=== PATIENT | female | born 1965 | race Two or more races ===

== ENCOUNTER 2017-10-30 13:47 | Emergency (ER) | payer OTHER ==
[~2017-10-30] VITALS: Ht 149.9 cm; Wt 60.8 kg
[~2017-10-30 13:47] MED LIST: ADVIL100 MG PO; ATENOLOL50 MG PO; BACTROBAN OINT22 GM TP; DIPROSONE CR.45 GM TP; GLIPIZIDE10 MG PO; METFORMIN HCL500 M1 PO; METFORMIN HYDRO25 GM
[2017-10-30] MEDS ORDERED: TUSSI-PRES LIQ118 ML PO (23:18)
== END 2017-10-31 01:21 | disposition home or self-care (01) ==
LOC: ER 13:47
DX: B34.9 Viral infection, unspecified (principal); J11.1 Influenza due to unidentified influenza virus with other respiratory manifestations

== ENCOUNTER 2018-03-31 23:08 | Emergency (ER) | payer OTHER ==
[~2018-03-31] VITALS: Ht 149.9 cm; Wt 59.0 kg
[~2018-03-31 23:08] MED LIST changes: +TUSSI-PRES LIQ118 ML PO
[2018-04-01] MEDS ORDERED: PEPCID AC20 MG PO (05:56)
[2018-04-01] MEDS ORDERED: PROMETHAZINE HC25 MG PO (05:56)
== END 2018-04-01 08:02 | disposition home or self-care (01) ==
LOC: ER 23:08
DX: K29.60 Other gastritis without bleeding (principal); E11.65 Type 2 diabetes mellitus with hyperglycemia

== ENCOUNTER → 2019-05-20 | Emergency (ER) | payer OTHER ==
[~2019-05-20] VITALS: Ht 147.3 cm; Wt 59.0 kg
[~2019-05-20] MED LIST changes: +FORTAMET1000 MG PO; +PEPCID AC20 MG PO; +PROMETHAZINE HC25 MG PO
== END | disposition home or self-care (01) ==
LOC: ER 18:31
DX: E11.65 Type 2 diabetes mellitus with hyperglycemia (principal); R10.13 Epigastric pain

== ENCOUNTER 2023-12-25 17:48 | Emergency (ER) | payer OTHER ==
[~2023-12-25] VITALS: Ht 149.9 cm; Wt 52.2 kg
[2023-12-25] MEDS ORDERED: CARVEDILOL12.5 MG (18:31)
[2023-12-25] MEDS ORDERED: JANUMET 50-1,01 EACH (18:31)
== END 2023-12-25 19:08 | disposition home or self-care (01) ==
LOC: ER 17:49
DX: H11.32 Conjunctival hemorrhage, left eye (principal); Z88.8 Allergy status to other drugs, medicaments and biological substances; H57.89 Other specified disorders of eye and adnexa

== ENCOUNTER 2024-10-11 01:55 | Emergency (ER) | payer OTHER ==
[~2024-10-11] VITALS: Ht 147.3 cm; Wt 59.0 kg
[~2024-10-11 01:55] MED LIST changes: +CARVEDILOL12.5 MG; +JANUMET 50-1,01 EACH
[2024-10-11] MEDS ORDERED: IRBESARTAN150 MG PO (02:10)
[2024-10-11] MEDS ORDERED: ATENOLOL25 MG PO (02:10)
[2024-10-11] MEDS ORDERED: HYDROCODONE/CHLORPHEN P-STIREX 5 ML ML PO STA (03:30)
[2024-10-11 04:06] LABS: HEMATOCRIT 31.8 % (36.0-45.00); MEAN CELL VOLUME 89.4 fL (80.00-100.00); MEAN CORPUSCULAR HGB CONC 33.7 g/dl (32.0-36.0); PLATELET COUNT 264 K/uL (150-450); RED BLOOD COUNT 3.56 M/uL (4.00-6.00); RED CELL DISTRIBUTION WIDTH 13.7 % (11.5-14.5)
[2024-10-11 04:15] LABS: HEMOGLOBIN 10.7 g/dL (12.0-15.00)
[2024-10-11 04:22] LABS: CALCIUM 8.4 mg/dL (8.5-10.1); CREATININE SERUM 0.66 mg/dL (0.55-1.02); GFR 90.75; INFLUENZA A AG NEGATIVE (NEGATIVE); POTASSIUM 4.51 mEq/L (3.5-5.1)
[2024-10-11 04:40] LABS: COVID-19 AG NEGATIVE (NEGATIVE)
[2024-10-11] MEDS ORDERED: INSULIN REGULAR, HUMAN 1,000 UNIT/10 ML UNITS SUBCUTANEO STA (04:53)
== END 2024-10-11 05:56 | disposition home or self-care (01) ==
LOC: ER 01:55
DX: J10.1 Influenza due to other identified influenza virus with other respiratory manifestations (principal); R51.9 Headache, unspecified; Z20.822 Contact with and (suspected) exposure to COVID-19; Z88.8 Allergy status to other drugs, medicaments and biological substances

== ENCOUNTER → 2024-11-18 | Emergency (ER) | payer OTHER ==
[~2024-11-18] VITALS: Ht 149.9 cm; Wt 60.3 kg
[~2024-11-18] MED LIST changes: +ACETAMINOPHEN 500 MG GEL..CAP PO PRN; +ATENOLOL25 MG PO; +CEFTRIAXONE SODIUM 2,000 MG in 0.9 % SODIUM CHLORIDE 100 ML IV SCH; +DEXTROSE 50 % IN WATER 0.5 G/ML DISP.SYRIN IV PRN; +ENOXAPARIN SODIUM 40 MG/0.4 ML SYRINGE SUBCUTANEO SCH; +FUROsemide 20 MG/2 ML VIAL IV SCH; +INSULIN LISPRO 1,000 UNIT/10 ML UNITS SUBCUTANEO PRN; +INSULIN REGULAR, HUMAN 1,000 UNIT/10 ML UNITS IV ONE; +IPRATROPIUM BROMIDE 0.5 MG/2.5 ML AMPUL.NEB IH SCH; +IRBESARTAN 75 MG TABLET PO SCH; +IRBESARTAN150 MG PO; +METOPROLOL SUCCINATE 25 MG TAB.SR.24H PO SCH; +METRONIDAZOLE/SODIUM CHLORIDE 100 ML IV SCH; +POTASSIUM BICARBONATE/CIT AC 25 MEQ TABLET.EFF PO ONE
[2024-11-18 20:38] LABS: BASO % 0.3 % (0.1-1.2); EOS # 0.09 (0.04-0.54); EOS % 1.2 % (0.7-7.0); HEMATOCRIT 37.1 % (34.1-44.9); HEMOGLOBIN 11.7 g/dL (11.2-15.7); LYMPH # 1.95 (1.18-3.74); LYMPH % 25.2 % (19.3-53.1); MEAN CORPUSCULAR HEMOGLOBIN 28.2 pg (25.6-32.2); MONO # 0.68 (0.24-0.82); MONO % 8.8 % (4.7-12.5); NEUT # 4.99 (1.56-6.13); NEUT % 64.2 % (34.0-71.1); PLATELET COUNT 273 K/uL (163-369); RED BLOOD COUNT 4.15 M/uL (3.93-5.22); RED CELL DISTRIBUTION WIDTH 13.4 % (11.6-14.4)
[2024-11-18 21:01] LABS: INR 1.2; PARTIAL THROMBOPLASTIN TIME 22.3 SECONDS (22.0-34.0); PROTHROMBIN TIME 12.9 SECONDS (9.0-11.5)
[2024-11-18 21:06] LABS: ALBUMIN 3.4 gm/dL (3.4-5.0); BILIRUBIN TOTAL 1.16 mg/dL (0.3-1.2); BILIRUBIN,CONJUGATED 0.34 mg/dL (0.0-0.2); BILIRUBIN,UNCONJUGATED 0.82 mg/dL (0.0-0.6); CALCIUM 8.8 mg/dL (8.5-10.1); CREATININE SERUM 0.77 mg/dL (0.55-1.02); GFR 75.96; GLOBULINA 3.1 G/DL (2.4-3.5); POTASSIUM 3.34 mEq/L (3.5-5.1); TOTAL PROTEIN 6.5 gm/dL (6.4-8.2)
[2024-11-18 21:35] LABS: URINE APPEARANCE Cloudy; URINE BILIRRUBIN Negative (NEGATIVE); URINE BLOOD Trace; URINE COLOR Yellow; URINE KETONE Trace (NEGATIVE); URINE LEUKOCYTE Moderate; URINE NITRATE Negative
[2024-11-18 21:47] LABS: URINE CAST 2.19 uL (0.0-1.40); URINE EPITHELIAL CELLS 8.8 uL (0.0-38.8); URINE RBC 9.9 uL (0.0-20.8); URINE WBC 1947.2 uL (0.0-23.2)
[2024-11-18 22:22] LABS: URINE BACTERIA > 9821.5 uL (0.0-1933); URINE GLUCOSE >=1000 MG/DL (NEGATIVE); URINE PROTEIN 100 (NEGATIVE)
== END | disposition left against medical advice (07) ==
LOC: ER 16:17
PROVIDERS: Preventive Medicine Public Health & General Preventive Medicine
DX: N39.0 Urinary tract infection, site not specified (principal); R60.0 Localized edema; I50.9 Heart failure, unspecified; E11.9 Type 2 diabetes mellitus without complications; Z79.84 Long term (current) use of oral hypoglycemic drugs; I10 Essential (primary) hypertension; Z88.8 Allergy status to other drugs, medicaments and biological substances

== ENCOUNTER 2024-12-27 08:57 | Emergency (ER) | payer OTHER ==
[~2024-12-27] VITALS: Ht 147.3 cm; Wt 61.2 kg
[~2024-12-27 08:57] MED LIST changes: -ACETAMINOPHEN 500 MG GEL..CAP PO PRN; -CEFTRIAXONE SODIUM 2,000 MG in 0.9 % SODIUM CHLORIDE 100 ML IV SCH; -DEXTROSE 50 % IN WATER 0.5 G/ML DISP.SYRIN IV PRN; -ENOXAPARIN SODIUM 40 MG/0.4 ML SYRINGE SUBCUTANEO SCH; -FUROsemide 20 MG/2 ML VIAL IV SCH; -INSULIN LISPRO 1,000 UNIT/10 ML UNITS SUBCUTANEO PRN; -INSULIN REGULAR, HUMAN 1,000 UNIT/10 ML UNITS IV ONE; -IPRATROPIUM BROMIDE 0.5 MG/2.5 ML AMPUL.NEB IH SCH; -IRBESARTAN 75 MG TABLET PO SCH; -METOPROLOL SUCCINATE 25 MG TAB.SR.24H PO SCH; -METRONIDAZOLE/SODIUM CHLORIDE 100 ML IV SCH; -POTASSIUM BICARBONATE/CIT AC 25 MEQ TABLET.EFF PO ONE
[2024-12-27 10:19] LABS: BASO % 0.3 % (0.1-1.2); EOS # 0.12 (0.04-0.54); EOS % 1.1 % (0.7-7.0); LYMPH # 2.54 (1.18-3.74); LYMPH % 24.1 % (19.3-53.1); MEAN PLATELET VOLUME 9.90 fl (9.4-12.4); MONO # 0.94 (0.24-0.82); MONO % 8.9 % (4.7-12.5); NEUT # 6.89 (1.56-6.13); NEUT % 65.2 % (34.0-71.1); RED CELL DISTRIBUTION WIDTH 13.8 % (11.6-14.4)
[2024-12-27 10:43] LABS: INR 1.39
[2024-12-27 10:46] LABS: ALT/SGPT 36.0 U/L (12-78); AST/SGOT 28.0 U/L (15-37); BILIRUBIN TOTAL 0.75 mg/dL (0.3-1.2); BILIRUBIN,CONJUGATED 0.3 mg/dL (0.0-0.2); BUN CREA RATIO 25.0 (7.0-25.0); CREATININE SERUM 0.72 mg/dL (0.55-1.02); GFR 82.08; GLOBULINA 2.9 G/DL (2.4-3.5)
[2024-12-27 10:55] LABS: URINE APPEARANCE Clear; URINE BILIRRUBIN Negative (NEGATIVE); URINE BLOOD Trace; URINE COLOR Yellow; URINE KETONE Negative (NEGATIVE); URINE LEUKOCYTE Moderate; URINE NITRATE Negative; URINE UROBILINOGEN 0.2 E.U./dl
[2024-12-27 10:58] LABS: URINE BACTERIA 212.3 uL (0.0-1933); URINE EPITHELIAL CELLS 28.7 uL (0.0-38.8); URINE RBC 18.0 uL (0.0-20.8); URINE WBC 241.9 uL (0.0-23.2)
[2024-12-27 11:09] LABS: GLUCOSE FASTING 267.0 mg/dL (65-100); OSMOLALITY SERUM 283.0 MOSM/KG (275-295)
[2024-12-27 11:12] LABS: URINE CAST 0.29 uL (0.0-1.40); URINE GLUCOSE >=1000 MG/DL (NEGATIVE); URINE PROTEIN 100 (NEGATIVE)
[2024-12-27] MEDS ORDERED: INSULIN REGULAR, HUMAN 1,000 UNIT/10 ML UNITS SUBCUTANEO ONE (14:30)
== END 2024-12-27 17:53 | disposition home or self-care (01) ==
LOC: ER 08:57
PROVIDERS: Emergency Medicine
DX: L03.116 Cellulitis of left lower limb (principal); L03.115 Cellulitis of right lower limb; R21 Rash and other nonspecific skin eruption; E11.9 Type 2 diabetes mellitus without complications; Z79.84 Long term (current) use of oral hypoglycemic drugs; Z88.8 Allergy status to other drugs, medicaments and biological substances

== ENCOUNTER 2025-01-10 16:10 | Inpatient (IN) | payer OTHER ==
[~2025-01-10] VITALS: Ht 121.9 cm; Wt 53.5 kg
[~2025-01-10 16:10] MED LIST changes: +ACETAMINOPHEN500 M1 PO; +GILTUSS COUGH-118 M1 PO; +JANUMET 50-1,01 EACH PO; +OSEL75CA PO; +TENORMIN25 MG PO
--- NOTE | 2025-01-10 16:23 | NUR ---
PACIENTE ALERTA Y ORIENTADA X 3. REFIERE ULCERAS EN AMBAS PIERNAS, SE OBSERVAN CON EDEMA, ERITEMA Y CALIENTES AL TACTO.
[2025-01-10] MEDS ORDERED: PIPERACILLIN/TAZOBACTAM SODIUM 3.375 GM VIAL IV ONE ×2 (17:00→17:05)
--- NOTE | 2025-01-10 17:36 | NUR ---
MRS. BRADFORDTIZ EDUCA A PTE SOBRE [place] MEDICO, SE THUAN MUESTRAS DE LABORATORIO UTILIZANDO MEDIDAS ASEPTICAS. SE COLOCA H/L EDDIE DE EDEMA. SE ADMINISTRAN MEDICAMENTOS ELLIE ORDEN MEDICA. SE NOTIFICAN RX PENDIENTES A REALIZAR.
[2025-01-10 17:47] LABS: BASO % 0.5 % (0.1-1.2); EOS # 0.09 (0.04-0.54); EOS % 1.2 % (0.7-7.0); LYMPH # 1.80 (1.18-3.74); LYMPH % 23.7 % (19.3-53.1); MEAN PLATELET VOLUME 9.80 fl (9.4-12.4); MONO # 0.62 (0.24-0.82); MONO % 8.2 % (4.7-12.5); NEUT # 5.02 (1.56-6.13); NEUT % 66.0 % (34.0-71.1); RED CELL DISTRIBUTION WIDTH 14.5 % (11.6-14.4)
[2025-01-10 18:03] LABS: URINE APPEARANCE Clear; URINE BILIRRUBIN Negative (NEGATIVE); URINE BLOOD Small; URINE COLOR Yellow; URINE KETONE Negative (NEGATIVE); URINE LEUKOCYTE Negative; URINE NITRATE Negative; URINE UROBILINOGEN 1.0 E.U./dl
[2025-01-10 18:07] LABS: URINE BACTERIA 32.3 uL (0.0-1933); URINE CAST 2.05 uL (0.0-1.40); URINE EPITHELIAL CELLS 15.3 uL (0.0-38.8); URINE RBC 4.1 uL (0.0-20.8); URINE WBC 23.0 uL (0.0-23.2)
[2025-01-10 18:08] LABS: INR 1.31
[2025-01-10 18:18] LABS: ALT/SGPT 42.0 U/L (12-78); AST/SGOT 25.0 U/L (15-37); BILIRUBIN TOTAL 1.5 mg/dL (0.3-1.2); BUN CREA RATIO 18.0 (7.0-25.0); CREATININE SERUM 0.96 mg/dL (0.55-1.02); GFR 58.89; GLOBULINA 3.4 G/DL (2.4-3.5)
[2025-01-10 18:21] LABS: URINE GLUCOSE >=1000 MG/DL (NEGATIVE); URINE PROTEIN 100 (NEGATIVE)
[2025-01-10 18:51] LABS: OSMOLALITY SERUM 297.0 MOSM/KG (275-295)
[2025-01-10 18:52] LABS: GLUCOSE FASTING 322.0 mg/dL (65-100)
[2025-01-10] MEDS ORDERED: DEXTROSE 50 % IN WATER 0.5 G/ML VIAL IV PRN (20:15)
[2025-01-10] MEDS ORDERED: POTASSIUM CHLORIDE 20MEQ/100ML H2O PB IV ONE (20:15)
[2025-01-10] MEDS ORDERED: INSULIN LISPRO 1,000 UNIT/10 ML UNITS SUBCUTANEO PRN (20:15)
[2025-01-10] MEDS ORDERED: ACETAMINOPHEN 325 MG TABLET PO PRN (20:15)
[2025-01-10] MEDS ORDERED: 0.9 % SODIUM CHLORIDE 1,000 ML IV SCH (20:15)
[2025-01-10] MEDS ORDERED: ENOXAPARIN SODIUM 40 MG/0.4 ML SYRINGE SUBCUTANEO SCH (20:15)
[2025-01-10] MEDS ORDERED: MEROPENEM 1,000 MG in 0.9 % SODIUM CHLORIDE 100 ML IV SCH (20:16)
[2025-01-10] MEDS ORDERED: ATENOLOL 25 MG TABLET PO SCH (20:17)
[2025-01-10] MEDS ORDERED: MORPHINE SULFATE 2 MG/ML CARTRIDGE IV PRN (20:30)
[2025-01-11] MEDS ORDERED: ENOXAPARIN SODIUM 40 MG/0.4 ML SYRINGE SUBCUTANEO ONE (00:11)
[2025-01-11] MEDS ORDERED: POTASSIUM CHLORIDE 20MEQ/100ML H2O PB IV ONE (00:11)
[2025-01-11 02:03] VITALS: BP 124/73; O2SAT 98
[2025-01-11] MEDS ORDERED: INSULIN LISPRO 1,000 UNIT/10 ML UNITS SUBCUTANEO ONE (02:34)
[2025-01-11 07:39] LABS: ALT/SGPT 37.0 U/L (12-78); AST/SGOT 25.0 U/L (15-37); BILIRUBIN TOTAL 1.1 mg/dL (0.3-1.2); BUN CREA RATIO 16.0 (7.0-25.0); CREATININE SERUM 0.74 mg/dL (0.55-1.02); GFR 79.52; GLOBULINA 3.2 G/DL (2.4-3.5); GLUCOSE FASTING 121.0 mg/dL (65-100); OSMOLALITY SERUM 288.0 MOSM/KG (275-295)
[2025-01-11 07:40] VITALS: BP 115/80; O2SAT 100
[2025-01-11] MEDS ORDERED: POTASSIUM CHLORIDE 20MEQ/100ML H2O PB IV NR (11:30)
[2025-01-11] MEDS ORDERED: POTASSIUM BICARBONATE/CIT AC 25 MEQ TABLET.EFF PO SCH (17:00)
[2025-01-11 17:06] VITALS: BP 96/66; O2SAT 100
[2025-01-12 02:16] VITALS: BP 114/69
[2025-01-12 04:56] LABS: BASO % 0.2 % (0.1-1.2); EOS # 0.09 (0.04-0.54); EOS % 1.1 % (0.7-7.0); LYMPH # 2.47 (1.18-3.74); LYMPH % 30.0 % (19.3-53.1); MEAN PLATELET VOLUME 10.20 fl (9.4-12.4); MONO # 0.75 (0.24-0.82); MONO % 9.1 % (4.7-12.5); NEUT # 4.88 (1.56-6.13); NEUT % 59.4 % (34.0-71.1); RED CELL DISTRIBUTION WIDTH 14.6 % (11.6-14.4)
[2025-01-12 05:25] LABS: ALT/SGPT 32.0 U/L (12-78); AST/SGOT 17.0 U/L (15-37); BILIRUBIN TOTAL 1.03 mg/dL (0.3-1.2); BUN CREA RATIO 16.0 (7.0-25.0); CREATININE SERUM 0.86 mg/dL (0.55-1.02); GFR 66.86; GLOBULINA 2.7 G/DL (2.4-3.5)
[2025-01-12 05:33] LABS: OSMOLALITY SERUM 292.0 MOSM/KG (275-295)
[2025-01-12 05:38] LABS: GLUCOSE FASTING 247.0 mg/dL (65-100)
[2025-01-12] MEDS ORDERED: POTASSIUM PHOS,M-BASIC-D-BASIC 15 MM in 0.9 % SODIUM CHLORIDE 250 ML IV NR (09:00)
[2025-01-12 09:16] VITALS: BP 124/72; O2SAT 93
[2025-01-12] MEDS ORDERED: SODIUM CL 0.9% 250 ML IV.SOLN ONE (13:29)
[2025-01-12] MEDS ORDERED: MAGNESIUM SULFATE IN WATER 4 GM/100 ML PIGGYBACK IV NR (13:51)
[2025-01-12 18:45] VITALS: BP 121/60; O2SAT 100
[2025-01-13 02:40] VITALS: BP 118/86; O2SAT 100
[2025-01-13 06:47] LABS: BASO % 0.2 % (0.1-1.2); EOS # 0.08 (0.04-0.54); EOS % 0.9 % (0.7-7.0); LYMPH # 2.17 (1.18-3.74); LYMPH % 23.6 % (19.3-53.1); MEAN PLATELET VOLUME 10.40 fl (9.4-12.4); MONO # 0.69 (0.24-0.82); MONO % 7.5 % (4.7-12.5); NEUT # 6.18 (1.56-6.13); NEUT % 67.4 % (34.0-71.1); RED CELL DISTRIBUTION WIDTH 14.6 % (11.6-14.4)
[2025-01-13 07:22] LABS: ALT/SGPT 32.0 U/L (12-78); AST/SGOT 21.0 U/L (15-37); BILIRUBIN TOTAL 1.03 mg/dL (0.3-1.2); BUN CREA RATIO 14.0 (7.0-25.0); CREATININE SERUM 0.97 mg/dL (0.55-1.02); GFR 58.19; GLOBULINA 3.0 G/DL (2.4-3.5); GLUCOSE FASTING 104.0 mg/dL (65-100); OSMOLALITY SERUM 288.0 MOSM/KG (275-295)
[2025-01-13 08:57] VITALS: BP 111/66; O2SAT 97
[2025-01-13 09:02] VITALS: BP 126/70; O2SAT 93
[2025-01-13] MEDS ORDERED: NAPH,MB-DB/K PH,MBDB 1 PKT PACKET PO NR (12:00)
[2025-01-13] MEDS ORDERED: NAPH,MB-DB/K PH,MBDB 1 PKT PACKET PO SCH (17:00)
[2025-01-13] MEDS ORDERED: MEROPENEM 500 MG in 0.9 % SODIUM CHLORIDE 50 ML IV SCH (17:00)
[2025-01-13 19:38] VITALS: BP 126/80
[2025-01-14 02:02] VITALS: BP 92/69; O2SAT 100
[2025-01-14] MEDS ORDERED: INSULIN GLARGINE,HUM.REC.ANLOG 1,000 UNITS/10 ML UNITS SUBCUTANEO SCH (09:00)
[2025-01-14 09:18] VITALS: BP 100/66; O2SAT 97
[2025-01-14] MEDS ORDERED: NAPH,MB-DB/K PH,MBDB 1 PKT PACKET PO SCH (13:00)
[2025-01-14 17:20] VITALS: BP 133/84; O2SAT 97
[2025-01-15 02:04] VITALS: BP 146/85; O2SAT 98
[2025-01-15 06:25] LABS: BASO % 0.4 % (0.1-1.2); EOS # 0.16 (0.04-0.54); EOS % 1.8 % (0.7-7.0); LYMPH # 2.30 (1.18-3.74); LYMPH % 25.4 % (19.3-53.1); MEAN PLATELET VOLUME 10.30 fl (9.4-12.4); MONO # 0.79 (0.24-0.82); MONO % 8.7 % (4.7-12.5); NEUT # 5.72 (1.56-6.13); NEUT % 63.1 % (34.0-71.1); RED CELL DISTRIBUTION WIDTH 14.8 % (11.6-14.4)
[2025-01-15 06:38] LABS: ALT/SGPT 28.0 U/L (12-78); AST/SGOT 23.0 U/L (15-37); BILIRUBIN TOTAL 0.82 mg/dL (0.3-1.2); BUN CREA RATIO 26.0 (7.0-25.0); CREATININE SERUM 0.62 mg/dL (0.55-1.02); GFR 97.53; GLOBULINA 2.8 G/DL (2.4-3.5); GLUCOSE FASTING 104.0 mg/dL (65-100); OSMOLALITY SERUM 285.0 MOSM/KG (275-295)
[2025-01-15 08:33] VITALS: BP 135/64; O2SAT 98
[2025-01-15] MEDS ORDERED: MAGNESIUM SULFATE IN WATER 4 GM/100 ML PIGGYBACK IV NR (13:30)
[2025-01-15 17:00] VITALS: BP 142/69; O2SAT 99
[2025-01-15] MEDS ORDERED: EMOLLIENTS 6 OZ BOTTLE TOP SCH (17:55)
[2025-01-16 02:13] VITALS: BP 118/78
[2025-01-16 09:41] VITALS: BP 125/71; O2SAT 92
[2025-01-16] MEDS ORDERED: LEVOFLOXACIN750 MG PO (13:35)
[2025-01-16] MEDS ORDERED: JANUMET 50-1,01 EACH PO (13:36)
[2025-01-16] MEDS ORDERED: ATENOLOL25 MG PO (13:36)
[2025-01-16] MEDS ORDERED: IRBESARTAN75 MG PO (13:36)
[2025-01-16] MEDS ORDERED: INTESTINEX680 M1 PO (13:36)
== END 2025-01-16 18:15 | disposition home or self-care (01) | DRG 623 ==
LOC: ER 16:10 → MEDJ 20:46 → SEC-K 20:46 → MEDJ 01-11 11:44
PROVIDERS: General Practice; ADMIT Internal Medicine; ATTEND Internal Medicine
PROC: B54DZZZ Ultrasonography of Bilateral Lower Extremity Veins (ICD-10-PCS; 2025-01-12)
PROC: B44HZZZ Ultrasonography of Bilateral Lower Extremity Arteries (ICD-10-PCS; 2025-01-12)
PROC: 0JBN0ZZ Excision of Right Lower Leg Subcutaneous Tissue and Fascia, Open Approach (ICD-10-PCS; principal; 2025-01-15)
DX: E11.622 Type 2 diabetes mellitus with other skin ulcer (principal); L03.115 Cellulitis of right lower limb; L97.819 Non-pressure chronic ulcer of other part of right lower leg with unspecified severity; L97.829 Non-pressure chronic ulcer of other part of left lower leg with unspecified severity; Z16.342 Resistance to multiple antimycobacterial drugs; E11.620 Type 2 diabetes mellitus with diabetic dermatitis; I83.018 Varicose veins of right lower extremity with ulcer other part of lower leg; I83.028 Varicose veins of left lower extremity with ulcer other part of lower leg; E87.6 Hypokalemia; I51.7 Cardiomegaly; E11.65 Type 2 diabetes mellitus with hyperglycemia; I10 Essential (primary) hypertension; B95.2 Enterococcus as the cause of diseases classified elsewhere; B96.5 Pseudomonas (aeruginosa) (mallei) (pseudomallei) as the cause of diseases classified elsewhere

== ENCOUNTER 2025-01-17 19:42 | Emergency (ER) | payer OTHER ==
[~2025-01-17] VITALS: Ht 147.3 cm; Wt 59.0 kg
[~2025-01-17 19:42] MED LIST changes: +INTESTINEX680 M1 PO; +IRBESARTAN75 MG PO; +LEVOFLOXACIN750 MG PO
[2025-01-18] MEDS ORDERED: 8 HOUR650 MG PO (00:37)
[2025-01-18] MEDS ORDERED: KETOROLAC TROMETHAMINE 30 MG VIAL IM ONE (00:45)
== END 2025-01-18 01:09 | disposition home or self-care (01) ==
LOC: ER 19:42
DX: S69.82XA Other specified injuries of left wrist, hand and finger(s), initial encounter (principal); W19.XXXA Unspecified fall, initial encounter; Y93.89 Activity, other specified; Y92.89 Other specified places as the place of occurrence of the external cause; Y99.8 Other external cause status
CPT/HCPCS: 73120; 96372; 99283; J1885

== ENCOUNTER 2025-01-25 23:02 | Inpatient (IN) | payer OTHER ==
[~2025-01-25] VITALS: Ht 160 cm; Wt 0.5 kg
[~2025-01-25 23:02] MED LIST changes: +8 HOUR650 MG PO
--- NOTE | 2025-01-25 23:37 | NUR ---
PACEITNE ALERTA Y ORIENTA X3 EN COMPANIA DE FAMILIAR Y AMBULANCIA QUIEN YASMINE A PACIENTE CON EDEMA EXTREMIDADES INFERIORES ENRROJECIMIENTO EN EL AREA VAGINAL.
[2025-01-26] MEDS ORDERED: KETOROLAC TROMETHAMINE 30 MG VIAL IV STA (00:45)
[2025-01-26] MEDS ORDERED: PIPERACILLIN/TAZOBACTAM SODIUM 3.375 GM VIAL IV STA (00:45)
[2025-01-26] MEDS ORDERED: TICAGRELOR 90 MG TABLET PO STA (00:46)
[2025-01-26 01:18] LABS: BASO % 0.1 % (0.1-1.2); EOS # 0.01 (0.04-0.54); EOS % 0.1 % (0.7-7.0); LYMPH # 2.09 (1.18-3.74); LYMPH % 20.3 % (19.3-53.1); MEAN PLATELET VOLUME 10.90 fl (9.4-12.4); MONO # 0.77 (0.24-0.82); MONO % 7.5 % (4.7-12.5); NEUT # 7.37 (1.56-6.13); NEUT % 71.6 % (34.0-71.1); RED CELL DISTRIBUTION WIDTH 16.1 % (11.6-14.4)
--- NOTE | 2025-01-26 01:24 | NUR ---
SE LE ORIENTA A PACIENTE SOBRE LA ORDEN MEDICA, REFIERE ENTENDER LAS MISMAS. SE CANALIZA Y SE LE COLOCA H/L, SE LE THUAN LAS MUETRAS Y SE LE ADMINISTRAN LOS MEDICAMENTOS ELLIE LA ORDEN.
[2025-01-26 01:44] LABS: ALT/SGPT 136.0 U/L (12-78); AST/SGOT 54.0 U/L (15-37); BILIRUBIN TOTAL 2.3 mg/dL (0.3-1.2); BUN CREA RATIO 18.0 (7.0-25.0); CREATININE SERUM 0.88 mg/dL (0.55-1.02); GFR 65.11; GLOBULINA 3.1 G/DL (2.4-3.5); OSMOLALITY SERUM 281.0 MOSM/KG (275-295)
[2025-01-26 01:45] LABS: GLUCOSE FASTING 282.0 mg/dL (65-100)
[2025-01-26 01:48] LABS: D DIMER 12.49 MG/L
[2025-01-26 01:49] LABS: ERYTHROCYTE SEDIMENTATION RATE < 1 mm/hr (0-30); INR 1.56
[2025-01-26 02:06] LABS: URINE APPEARANCE Clear; URINE BILIRRUBIN Negative (NEGATIVE); URINE BLOOD Negative; URINE COLOR Dark Yellow; URINE KETONE Trace (NEGATIVE); URINE LEUKOCYTE Small; URINE NITRATE Negative; URINE UROBILINOGEN 1.0 E.U./dl
[2025-01-26 02:10] LABS: URINE BACTERIA 682.7 uL (0.0-1933); URINE CAST 1.46 uL (0.0-1.40); URINE EPITHELIAL CELLS 47.3 uL (0.0-38.8); URINE RBC 9.2 uL (0.0-20.8); URINE WBC 160.2 uL (0.0-23.2)
[2025-01-26 02:16] LABS: TYPE CELLS SQUAMOUS; URINE GLUCOSE 500 MG/DL (NEGATIVE); URINE PROTEIN 100 (NEGATIVE)
--- NOTE | 2025-01-26 08:05 | NUR ---
PERSONAL DE MEDICINA NUCLEAR LAURA REFIERE QUE LLEGARA AL [facility] A LAS 10:00AM.
--- NOTE | 2025-01-26 10:06 | NUR ---
SE LLAMA PERSONAL DE MEDICINA NUCLEAR LAURA PARA CORROBORAR QUE DOMINIC EN EL HOSPITAL Y LA MISMA REFIERE NO PODER LLEGAR AHORA POR RAZONES PERSONALES. SE MANTIENE EN ESPERA A LO QUE LLEGA.
--- NOTE | 2025-01-26 10:57 | NUR ---
SE LLAMA A TECNICA DE MEDICINA NUCLEAR [place] LA MISMA NO CONTESTA LA LLAMADA. SE NOTIFICA A SUPERVISION GENERAL PARA QUE NO SAYUDE A CONTACTARLA.
--- NOTE | 2025-01-26 11:42 | NUR ---
SE RECIBE PACIENTE EN AREA DE CRITICO DESDE SECC K-7. SE CONECTA A MONITOR CARDIACO Y OXIMETRIA DE PULSO CONTINUA. SE OBSERVA CANALIZACION EN RA CON ANGIO #20 QUE SE ENCUENTRA PATENTE, EDDIE DE EDEMA Y PROCESOS INFECCIOSOS. SE OBSERVA ABDOMEN UN LEVEMENTE DISTENDIDO. SE OBSERVA PIERNA DERECHA CON ERITEMA. PENDIENTE DUPPLEX YA NOTIFICADO.
--- NOTE | 2025-01-26 13:41 | NUR ---
SE LLAMA NUEVAMENTE A NUCLEAR PARA SEGUIMIENTO DE DUPLEX Y NOTIFICAR CAMBIO DE ORDEN A BEDSIDE, LA MISMA REFIERE QUE REALIZARA JELLY UN ESTUDIO DE OTRO PACIENTE Y LUEGO SUBE A REALIZAR EL MISMO.
--- NOTE | 2025-01-26 13:58 | NUR ---
PERSONAL DE NUCLEAR REALIZA DUPPLEX A PACIENTE.
--- NOTE | 2025-01-26 14:12 | NUR ---
PACIENTE REHUSA ABG Y QUE LA CANALIZEN NUEVAMENTE.
--- NOTE | 2025-01-26 16:21 | NUR ---
SE RECIBE PACIENTE FEMINA DE 60 Y/0 SOMNOLIENTE Y CONCIENTE EN UNIDAD DE ICU-2 EN POSICION SEMI-PATEL CON BARANDAS ELEVADAS X4. LA MISMA BAJO MONITOREO CARDIACO Y OXIMETRIA DE PULSO; ACCESO VENOSO PATENTE EDDIE DE EDEMA Y ERITEMA. PACIENTE NO REFIERE DOLOR ALGUNO. PACIETNE TAQUICARDIA SINOSAL INESTABLE MOSTRANDOSE HASTA TAQUICARDIA SUPRAVENTRICULAR, OXIGENACION INESTABLE. LA MISMA CON DIRECTRICES ANTICIPADAS DNI Y DNR EL MISMO FIRMADO.
[2025-01-26] MEDS ORDERED: DEXTROSE 50 % IN WATER 0.5 G/ML DISP.SYRIN IV PRN (22:30)
[2025-01-26] MEDS ORDERED: INSULIN LISPRO 1,000 UNIT/10 ML UNITS SUBCUTANEO PRN (22:30)
[2025-01-26] MEDS ORDERED: APIXABAN 5 MG TABLET PO SCH (22:32)
[2025-01-26] MEDS ORDERED: ENOXAPARIN SODIUM 60 MG/0.6 ML SYRINGE SUBCUTANEO ONE (22:45)
[2025-01-27] MEDS ORDERED: PIPERACILLIN/TAZOBACTAM SODIUM 3.375 GM in 0.9 % SODIUM CHLORIDE 100 ML IV SCH
[2025-01-27 01:32] LABS: ALT/SGPT 116.0 U/L (12-78); AST/SGOT 47.0 U/L (15-37); BILIRUBIN TOTAL 2.97 mg/dL (0.3-1.2); BILIRUBIN,CONJUGATED 1.17 mg/dL (0.0-0.2)
[2025-01-27 02:02] VITALS: BP 109/78; O2SAT 96
[2025-01-27 08:00] VITALS: BP 108/74; O2SAT 96
[2025-01-27] MEDS ORDERED: METOPROLOL SUCCINATE 25 MG TAB.SR.24H PO STA (10:40)
[2025-01-27] MEDS ORDERED: RINGERS SOLUTION,LACTATED 1,000 ML IV SCH (11:00)
[2025-01-27 13:46] LABS: COVID-19 AG NEGATIVE (NEGATIVE)
[2025-01-27] MEDS ORDERED: INSULIN GLARGINE,HUM.REC.ANLOG 1,000 UNITS/10 ML UNITS SUBCUTANEO SCH (17:00)
[2025-01-27 17:52] VITALS: BP 108/80; O2SAT 98
[2025-01-28 07:38] LABS: BASO % 0.1 % (0.1-1.2); EOS # 0.03 (0.04-0.54); EOS % 0.3 % (0.7-7.0); LYMPH # 1.42 (1.18-3.74); LYMPH % 13.8 % (19.3-53.1); MEAN PLATELET VOLUME 10.20 fl (9.4-12.4); MONO # 0.88 (0.24-0.82); MONO % 8.6 % (4.7-12.5); NEUT # 7.91 (1.56-6.13); NEUT % 76.8 % (34.0-71.1); RED CELL DISTRIBUTION WIDTH 17.0 % (11.6-14.4)
[2025-01-28 07:53] LABS: ALT/SGPT 89.0 U/L (12-78); AST/SGOT 38.0 U/L (15-37); BILIRUBIN TOTAL 1.91 mg/dL (0.3-1.2); BUN CREA RATIO 24.0 (7.0-25.0); CREATININE SERUM 0.88 mg/dL (0.55-1.02); GFR 65.11; GLOBULINA 3.1 G/DL (2.4-3.5); GLUCOSE FASTING 119.0 mg/dL (65-100); OSMOLALITY SERUM 282.0 MOSM/KG (275-295)
[2025-01-28 08:00] VITALS: BP 119/89; O2SAT 96
[2025-01-28] MEDS ORDERED: CEFTRIAXONE SODIUM 2,000 MG VIAL IV SCH (09:00)
[2025-01-28] MEDS ORDERED: METOPROLOL TARTRATE 25 MG TABLET PO SCH (09:00)
[2025-01-28] MEDS ORDERED: SODIUM POLYSTYRENE SULFONATE 30G/8 TSP PO STA (10:43)
[2025-01-29 09:11] LABS: hav igm Negative (Negative); hep b c Negative (Negative); hep b s ag Negative (Negative)
[2025-01-29 17:00] VITALS: BP 126/78; O2SAT 98
[2025-01-30 03:23] VITALS: BP 91/71; O2SAT 94
[2025-01-30 06:50] LABS: BASO % 0.1 % (0.1-1.2); EOS # 0.06 (0.04-0.54); EOS % 0.5 % (0.7-7.0); LYMPH # 1.59 (1.18-3.74); LYMPH % 13.3 % (19.3-53.1); MEAN PLATELET VOLUME 10.00 fl (9.4-12.4); MONO # 1.06 (0.24-0.82); MONO % 8.9 % (4.7-12.5); NEUT # 9.11 (1.56-6.13); NEUT % 76.4 % (34.0-71.1); RED CELL DISTRIBUTION WIDTH 16.8 % (11.6-14.4)
[2025-01-30 07:40] LABS: ALT/SGPT 67.0 U/L (12-78); AST/SGOT 28.0 U/L (15-37); BILIRUBIN TOTAL 1.25 mg/dL (0.3-1.2); BUN CREA RATIO 29.0 (7.0-25.0); CREATININE SERUM 0.82 mg/dL (0.55-1.02); GFR 70.64; GLOBULINA 2.9 G/DL (2.4-3.5); GLUCOSE FASTING 99.0 mg/dL (65-100); OSMOLALITY SERUM 287.0 MOSM/KG (275-295)
[2025-01-30 08:00] VITALS: BP 109/83; O2SAT 98
[2025-01-30 16:00] VITALS: BP 105/75; O2SAT 96
[2025-01-31 01:31] VITALS: BP 112/78; O2SAT 100
[2025-01-31] MEDS ORDERED: FLUCONAZOLE 100 MG TABLET PO SCH (09:00)
[2025-01-31 13:42] VITALS: BP 109/83; O2SAT 98
[2025-01-31 17:52] VITALS: BP 115/77; O2SAT 90
[2025-02-01 00:39] VITALS: BP 138/76; O2SAT 95
[2025-02-01 08:00] VITALS: BP 115/79; O2SAT 98
[2025-02-01] MEDS ORDERED: INSULIN LISPRO 1,000 UNIT/10 ML UNITS SUBCUTANEO SCH (08:00)
[2025-02-01 09:13] VITALS: O2SAT 97
[2025-02-01] MEDS ORDERED: INSULIN GLARGINE,HUM.REC.ANLOG 1,000 UNITS/10 ML UNITS SUBCUTANEO SCH (17:00)
[2025-02-01] MEDS ORDERED: DIPHENHYDRAMINE HCL 50 MG/ML VIAL 1ML ONE (18:40)
[2025-02-01] MEDS ORDERED: HALOPERIDOL LACTATE 5 MG/ML AMPUL ONE (18:40)
[2025-02-01] MEDS ORDERED: DIPHENHYDRAMINE HCL 50 MG/ML VIAL 1ML IM STA (18:47)
[2025-02-01] MEDS ORDERED: HALOPERIDOL LACTATE 5 MG/ML AMPUL IM STA (18:47)
[2025-02-02 01:04] VITALS: BP 126/84; O2SAT 99
[2025-02-02 15:51] VITALS: BP 119/91; O2SAT 100
[2025-02-03 00:34] VITALS: BP 89/61; O2SAT 100
[2025-02-03 01:02] LABS: ABG PH 7.415 (7.35-7.45); ABG PO2 184.7 mmHg (80-100); BICARBONATE 22.6 mmol/l (23-25)
[2025-02-03 01:25] VITALS: BP 105/62; O2SAT 95
[2025-02-03 02:10] LABS: o2 50 %
[2025-02-03 07:57] LABS: ALT/SGPT 59.0 U/L (12-78); AST/SGOT 52.0 U/L (15-37); BILIRUBIN TOTAL 1.75 mg/dL (0.3-1.2); BUN CREA RATIO 39.0 (7.0-25.0); CREATININE SERUM 0.61 mg/dL (0.55-1.02); GFR 99.38; GLOBULINA 2.9 G/DL (2.4-3.5); GLUCOSE FASTING 52.0 mg/dL (65-100); OSMOLALITY SERUM 281.0 MOSM/KG (275-295)
[2025-02-03 07:58] LABS: BASO % 0.1 % (0.1-1.2); EOS # 0.01 (0.04-0.54); EOS % 0.1 % (0.7-7.0); LYMPH # 1.69 (1.18-3.74); LYMPH % 16.8 % (19.3-53.1); MEAN PLATELET VOLUME 9.80 fl (9.4-12.4); MONO # 0.79 (0.24-0.82); MONO % 7.9 % (4.7-12.5); NEUT # 7.49 (1.56-6.13); NEUT % 74.5 % (34.0-71.1); RED CELL DISTRIBUTION WIDTH 17.0 % (11.6-14.4)
[2025-02-03 08:15] VITALS: BP 113/58; O2SAT 97
[2025-02-03] MEDS ORDERED: SPIRONOLACTONE 25 MG TABLET PO SCH (09:00)
[2025-02-03] MEDS ORDERED: BUMETANIDE 0.5 MG TABLET PO SCH ×2 (09:00→17:00)
[2025-02-03] MEDS ORDERED: MAGNESIUM CHLORIDE 70 MG TABLET.DR PO SCH (09:20)
[2025-02-03 11:06] LABS: ABG PH 7.441 (7.35-7.45); ABG PO2 80.4 mmHg (80-100); BICARBONATE 25.5 mmol/l (23-25); o2 21 %
[2025-02-03] MEDS ORDERED: HALOPERIDOL LACTATE 5 MG/ML AMPUL IM PRN (15:00)
[2025-02-03] MEDS ORDERED: DIPHENHYDRAMINE HCL 50 MG/ML VIAL 1ML IM PRN (15:00)
[2025-02-03 17:04] VITALS: BP 107/77; O2SAT 98
[2025-02-03 21:46] VITALS: O2SAT 0
[2025-02-04 00:04] VITALS: BP 118/73; O2SAT 99
[2025-02-04 08:22] VITALS: BP 106/68; O2SAT 99
[2025-02-04] MEDS ORDERED: LOPRESSOR25 MG PO (12:43)
[2025-02-04] MEDS ORDERED: FLUCONAZOLE100 MG PO (12:44)
[2025-02-04] MEDS ORDERED: LASIX20 MG PO (12:44)
[2025-02-04] MEDS ORDERED: ELIQUIS5 MG PO (12:45)
[2025-02-04] MEDS ORDERED: JANUMET 50-1,01 EACH PO (12:46)
== END 2025-02-04 17:45 | disposition home or self-care (01) | DRG 593 ==
LOC: ER 23:02 → SEC-K 01-26 22:33 → SURG 01-26 22:33
PROVIDERS: General Practice; Internal Medicine; ADMIT Internal Medicine; ATTEND Internal Medicine
PROC: B54DZZZ Ultrasonography of Bilateral Lower Extremity Veins (ICD-10-PCS; 2025-01-26)
PROC: B24BYZZ Ultrasonography of Heart with Aorta using Other Contrast (ICD-10-PCS; 2025-01-27)
PROC: 4A12X4Z Monitoring of Cardiac Electrical Activity, External Approach (ICD-10-PCS; 2025-01-27)
PROC: 0HBLXZZ Excision of Left Lower Leg Skin, External Approach (ICD-10-PCS; principal; 2025-02-03)
PROC: 0HBKXZZ Excision of Right Lower Leg Skin, External Approach (ICD-10-PCS; 2025-02-03)
DX: L97.529 Non-pressure chronic ulcer of other part of left foot with unspecified severity (principal); I82.403 Acute embolism and thrombosis of unspecified deep veins of lower extremity, bilateral; L03.115 Cellulitis of right lower limb; L03.116 Cellulitis of left lower limb; L97.519 Non-pressure chronic ulcer of other part of right foot with unspecified severity; E11.9 Type 2 diabetes mellitus without complications; Z79.4 Long term (current) use of insulin; I50.9 Heart failure, unspecified; I48.91 Unspecified atrial fibrillation; I10 Essential (primary) hypertension; B37.9 Candidiasis, unspecified

== ENCOUNTER 2025-02-05 22:09 | Inpatient (IN) | payer OTHER ==
[~2025-02-05] VITALS: Ht 152.4 cm; Wt 53.5 kg
[~2025-02-05 22:09] MED LIST changes: +ELIQUIS5 MG PO; +FLUCONAZOLE100 MG PO; +LASIX20 MG PO; +LOPRESSOR25 MG PO
[2025-02-05] MEDS ORDERED: CEFTRIAXONE SODIUM 1,000 MG VIAL ONE (23:20)
[2025-02-05] MEDS ORDERED: 0.9 % SODIUM CHLORIDE 1,000 ML IV ONE (23:30)
[2025-02-05] MEDS ORDERED: CEFTRIAXONE SODIUM 1,000 MG VIAL IV ONE (23:30)
[2025-02-06] VITALS (11 sets, daily range): BP systolic 107–134; BP diastolic 67–103; O2SAT 96–100
[2025-02-06 00:03] LABS: BASO % 0.0 % (0.1-1.2); EOS # 0.03 (0.04-0.54); EOS % 0.3 % (0.7-7.0); LYMPH # 1.13 (1.18-3.74); LYMPH % 9.8 % (19.3-53.1); MEAN PLATELET VOLUME 9.80 fl (9.4-12.4); MONO # 0.80 (0.24-0.82); MONO % 7.0 % (4.7-12.5); NEUT # 9.48 (1.56-6.13); NEUT % 82.5 % (34.0-71.1); RED CELL DISTRIBUTION WIDTH 17.4 % (11.6-14.4)
[2025-02-06 00:23] LABS: ABG PH 7.473 (7.35-7.45); ABG PO2 86.2 mmHg (80-100); BICARBONATE 28.9 mmol/l (23-25)
[2025-02-06 00:25] LABS: ALT/SGPT 51.0 U/L (12-78); AST/SGOT 42.0 U/L (15-37); BILIRUBIN TOTAL 1.97 mg/dL (0.3-1.2); BILIRUBIN,CONJUGATED 1.12 mg/dL (0.0-0.2); BUN CREA RATIO 39.0 (7.0-25.0); CREATININE SERUM 0.8 mg/dL (0.55-1.02); GFR 72.68; GLOBULINA 2.9 G/DL (2.4-3.5); OSMOLALITY SERUM 290.0 MOSM/KG (275-295)
[2025-02-06 00:27] LABS: INR 1.64
[2025-02-06 00:32] LABS: GLUCOSE FASTING 241.0 mg/dL (65-100)
[2025-02-06] MEDS ORDERED: NITROGLYCERIN 250 ML IV SCH (01:15)
[2025-02-06] MEDS ORDERED: NOREPINEPHRINE BITARTRATE 1 MG/ML AMPUL IV ONE (01:16)
[2025-02-06] MEDS ORDERED: NOREPINEPHRINE BITARTRATE 8 MG in DEXTROSE 5 % IN WATER 250 ML IV SCH (01:30)
[2025-02-06 02:03] LABS: o2 21 %
[2025-02-06 02:24] LABS: URINE APPEARANCE Clear; URINE BILIRRUBIN Negative (NEGATIVE); URINE BLOOD Negative; URINE COLOR Yellow; URINE KETONE Negative (NEGATIVE); URINE LEUKOCYTE Trace; URINE NITRATE Negative; URINE PROTEIN Trace (NEGATIVE); URINE UROBILINOGEN 1.0 E.U./dl
[2025-02-06 02:27] LABS: URINE BACTERIA 13.2 uL (0.0-1933); URINE EPITHELIAL CELLS 20.7 uL (0.0-38.8); URINE RBC 5.2 uL (0.0-20.8); URINE WBC 35.6 uL (0.0-23.2)
[2025-02-06 02:40] LABS: URINE CAST 0.14 uL (0.0-1.40); URINE GLUCOSE 100 MG/DL (NEGATIVE)
[2025-02-06] MEDS ORDERED: AMIODARONE HCL 900 MG/500 ML KIT IV ONE (09:10)
[2025-02-06] MEDS ORDERED: PANTOPRAZOLE SODIUM 40 MG TABLET.DR PO SCH (09:27)
[2025-02-06] MEDS ORDERED: APIXABAN 5 MG TABLET PO SCH (09:27)
[2025-02-06] MEDS ORDERED: INSULIN LISPRO 1,000 UNIT/10 ML UNITS SUBCUTANEO PRN (09:30)
[2025-02-06] MEDS ORDERED: AMIODARONE HCL 500 ML IV SCH (09:30)
[2025-02-06] MEDS ORDERED: DEXTROSE 50 % IN WATER 0.5 G/ML DISP.SYRIN IV PRN (09:30)
[2025-02-06 11:01] LABS: TSH 1.72 uIU/mL (0.358-3.74)
[2025-02-06 11:09] LABS: COCAINE NEGATIVE (NEGATIVE); METHADONE NEGATIVE (NEGATIVE); OPIATES NEGATIVE (NEGATIVE); THC ( Cannabinoids) NEGATIVE (NEGATIVE)
[2025-02-06 11:20] LABS: COVID-19 AG NEGATIVE (NEGATIVE)
[2025-02-06] MEDS ORDERED: INSULIN LISPRO 1,000 UNIT/10 ML UNITS SUBCUTANEO ONE (17:33)
[2025-02-07] VITALS (15 sets, daily range): BP systolic 95–121; BP diastolic 62–88; O2SAT 98–100
[2025-02-07 06:54] LABS: BASO % 0.1 % (0.1-1.2); EOS # 0.03 (0.04-0.54); EOS % 0.4 % (0.7-7.0); LYMPH # 1.29 (1.18-3.74); LYMPH % 15.3 % (19.3-53.1); MEAN PLATELET VOLUME 10.00 fl (9.4-12.4); MONO # 0.56 (0.24-0.82); MONO % 6.7 % (4.7-12.5); NEUT # 6.48 (1.56-6.13); NEUT % 76.9 % (34.0-71.1); RED CELL DISTRIBUTION WIDTH 17.2 % (11.6-14.4)
[2025-02-07 07:42] LABS: ALT/SGPT 40.0 U/L (12-78); AST/SGOT 26.0 U/L (15-37); BILIRUBIN TOTAL 1.77 mg/dL (0.3-1.2); BUN CREA RATIO 35.0 (7.0-25.0); CREATININE SERUM 0.65 mg/dL (0.55-1.02); GFR 92.36; GLOBULINA 2.6 G/DL (2.4-3.5); GLUCOSE FASTING 176.0 mg/dL (65-100); OSMOLALITY SERUM 282.0 MOSM/KG (275-295)
[2025-02-07] MEDS ORDERED: AMIODARONE HCL 200 MG TABLET PO SCH (09:00)
[2025-02-07] MEDS ORDERED: MAGNESIUM SULFATE IN WATER 4 GM/100 ML PIGGYBACK IV NR (11:00)
[2025-02-07] MEDS ORDERED: CHLORHEXIDINE GLUCONATE 120 ML BOTTLE TOP ONE (11:43)
[2025-02-07] MEDS ORDERED: POTASSIUM BICARBONATE/CIT AC 25 MEQ TABLET.EFF PO NR (12:30)
[2025-02-07] MEDS ORDERED: IRON FUM,PS/FOLIC/BCOMP,C NO.9 1 CAP CAPSULE PO NR (12:30)
[2025-02-07] MEDS ORDERED: AMINO ACIDS/PROTEIN HYDROLYS 30 ML BLIST.PACK PO SCH (17:00)
[2025-02-07] MEDS ORDERED: INSULIN NPH HUMAN ISOPHANE 1,000 UNITS/10 ML UNITS SUBCUTANEO STA (18:01)
[2025-02-08] VITALS (8 sets, daily range): BP systolic 132–137; BP diastolic 80–86; O2SAT 99–100
[2025-02-08] MEDS ORDERED: IRON FUM,PS/FOLIC/BCOMP,C NO.9 1 CAP CAPSULE PO SCH (09:00)
[2025-02-08] MEDS ORDERED: INSULIN GLARGINE,HUM.REC.ANLOG 1,000 UNITS/10 ML UNITS SUBCUTANEO SCH (09:00)
[2025-02-09] VITALS (7 sets, daily range): BP systolic 110–120; BP diastolic 69–80; O2SAT 97–100
[2025-02-09] MEDS ORDERED: INSULIN GLARGINE,HUM.REC.ANLOG 1,000 UNITS/10 ML UNITS SUBCUTANEO SCH (09:46)
[2025-02-09] MEDS ORDERED: TRIAMCINOLONE ACETONIDE 5 GM TUBE TOP SCH (17:00)
[2025-02-09] MEDS ORDERED: RISPERIDONE 0.5 MG TABLET PO SCH (21:00)
[2025-02-10] VITALS (7 sets, daily range): BP systolic 113–118; BP diastolic 78; O2SAT 96–100
[2025-02-10 06:17] LABS: BASO % 0.1 % (0.1-1.2); EOS # 0.12 (0.04-0.54); EOS % 1.3 % (0.7-7.0); LYMPH # 1.52 (1.18-3.74); LYMPH % 16.4 % (19.3-53.1); MEAN PLATELET VOLUME 9.90 fl (9.4-12.4); MONO # 0.69 (0.24-0.82); MONO % 7.4 % (4.7-12.5); NEUT # 6.91 (1.56-6.13); NEUT % 74.6 % (34.0-71.1); RED CELL DISTRIBUTION WIDTH 18.7 % (11.6-14.4)
[2025-02-10 06:53] LABS: ALT/SGPT 34.0 U/L (12-78); AST/SGOT 24.0 U/L (15-37); BILIRUBIN TOTAL 1.25 mg/dL (0.3-1.2); BUN CREA RATIO 29.0 (7.0-25.0); CREATININE SERUM 0.77 mg/dL (0.55-1.02); GFR 75.96; GLOBULINA 3.1 G/DL (2.4-3.5); GLUCOSE FASTING 167.0 mg/dL (65-100); OSMOLALITY SERUM 285.0 MOSM/KG (275-295)
[2025-02-10] MEDS ORDERED: MAGNESIUM CHLORIDE 70 MG TABLET.DR PO SCH (17:00)
[2025-02-11 01:18] VITALS: BP 108/74; O2SAT 98
[2025-02-11 09:32] VITALS: BP 128/95; O2SAT 95
[2025-02-11] MEDS ORDERED: ELIQUIS5 MG PO (12:17)
[2025-02-11] MEDS ORDERED: LASIX20 MG PO (12:17)
[2025-02-11] MEDS ORDERED: JANUMET 50-1,01 EACH PO (12:17)
[2025-02-11] MEDS ORDERED: AMIODARONE HCL200 MG NGT (12:17)
== END 2025-02-11 10:17 | disposition home or self-care (01) | DRG 291 ==
LOC: ER 22:09 → ICU-2 02-06 10:47 → ICU 02-06 10:47 → MEDI 02-07 17:31
PROVIDERS: General Practice; Internal Medicine; ADMIT Internal Medicine; ATTEND Internal Medicine
PROC: BW28YZZ Computerized Tomography (CT Scan) of Head using Other Contrast (ICD-10-PCS; principal; 2025-02-05)
PROC: 4A12X4Z Monitoring of Cardiac Electrical Activity, External Approach (ICD-10-PCS; 2025-02-07)
DX: I50.20 Unspecified systolic (congestive) heart failure (principal); A41.9 Sepsis, unspecified organism; I82.403 Acute embolism and thrombosis of unspecified deep veins of lower extremity, bilateral; D72.829 Elevated white blood cell count, unspecified; E11.9 Type 2 diabetes mellitus without complications; Z79.4 Long term (current) use of insulin; L97.529 Non-pressure chronic ulcer of other part of left foot with unspecified severity; L97.519 Non-pressure chronic ulcer of other part of right foot with unspecified severity

== ENCOUNTER 2025-03-31 14:55 | Emergency (ER) | payer OTHER ==
[~2025-03-31] VITALS: Ht 149.9 cm; Wt 59.0 kg
[~2025-03-31 14:55] MED LIST changes: +AMIODARONE HCL200 MG NGT
[2025-03-31] MEDS ORDERED: 0.9 % SODIUM CHLORIDE 1,000 ML IV ONE (16:30)
[2025-03-31] MEDS ORDERED: PIPERACILLIN/TAZOBACTAM SODIUM 2.25 GM VIAL IV ONE (16:30)
[2025-03-31] MEDS ORDERED: NOREPINEPHRINE BITARTRATE 1 MG/ML AMPUL IV ONE (17:15)
[2025-03-31 17:28] LABS: BASO % 0.3 % (0.1-1.2); EOS # 0.01 (0.04-0.54); EOS % 0.2 % (0.7-7.0); LYMPH # 1.05 (1.18-3.74); LYMPH % 16.1 % (19.3-53.1); MEAN PLATELET VOLUME 9.30 fl (9.4-12.4); MONO # 0.60 (0.24-0.82); MONO % 9.2 % (4.7-12.5); NEUT # 4.81 (1.56-6.13); NEUT % 73.7 % (34.0-71.1); RED CELL DISTRIBUTION WIDTH 18.7 % (11.6-14.4)
[2025-03-31 17:59] LABS: INR 1.57
[2025-03-31 18:29] LABS: ALT/SGPT 21.0 U/L (12-78); AST/SGOT 26.0 U/L (15-37); BILIRUBIN TOTAL 1.49 mg/dL (0.3-1.2); BUN CREA RATIO 14.0 (7.0-25.0); CREATININE SERUM 1.08 mg/dL (0.55-1.02); GFR 51.4; GLOBULINA 2.9 G/DL (2.4-3.5); GLUCOSE FASTING 188.0 mg/dL (65-100); OSMOLALITY SERUM 280.0 MOSM/KG (275-295); PHOSPHOKINASE CREATININE 34.0 U/L (26-192)
[2025-03-31 18:43] LABS: TSH 10.0 uIU/mL (0.358-3.74)
[2025-03-31 18:49] LABS: URINE APPEARANCE Clear; URINE BILIRRUBIN Negative (NEGATIVE); URINE BLOOD Negative; URINE COLOR Yellow; URINE KETONE Negative (NEGATIVE); URINE LEUKOCYTE Negative; URINE NITRATE Negative; URINE PROTEIN 30 (NEGATIVE); URINE UROBILINOGEN 0.2 E.U./dl
[2025-03-31 18:53] LABS: URINE EPITHELIAL CELLS 13.5 uL (0.0-38.8); URINE RBC 4.3 uL (0.0-20.8); URINE WBC 5.9 uL (0.0-23.2)
[2025-03-31 18:59] LABS: URINE BACTERIA 3.5 uL (0.0-1933); URINE CAST 0.43 uL (0.0-1.40); URINE GLUCOSE >=1000 MG/DL (NEGATIVE)
== END 2025-04-01 01:40 | disposition designated cancer center or children's hospital (05) ==
LOC: ER 14:56
PROVIDERS: General Practice
DX: R41.82 Altered mental status, unspecified (principal); E87.20 Acidosis, unspecified; E03.8 Other specified hypothyroidism; L03.317 Cellulitis of buttock; L02.31 Cutaneous abscess of buttock; I50.9 Heart failure, unspecified
CPT/HCPCS: 36415; 71045; 74176; 82803; 93005; 96365; 96366; 99285; J1650; J2543; J7030